=== PATIENT | female | born 1970 | race Asian ===

== ENCOUNTER 2020-03-08 11:08 | Emergency (ER) | payer BC, OTHER ==
[2020-03-08] MEDS ORDERED: Dexamethasone 4 MG/ML SDV IM ONE (11:55)
--- NOTE | 2020-03-08 12:31 | CR ---
PROCEDURE INFORMATION: Exam: XR Chest, 1 View Exam date and time: 03/08/2020 12:14 PM Age: 50 years old Clinical indication: Cough and shortness of breath; Additional info: Covid, increased SOB TECHNIQUE: Imaging protocol: XR of the chest Views: 1 view. COMPARISON: No relevant prior studies available. FINDINGS: Lungs: There is mild increase in interstitial markings within the lungs. This is nonspecific. No pneumonia or pulmonary edema is present. Pleural space: Unremarkable. No pleural effusion. No pneumothorax. Heart/Mediastinum: Unremarkable. No cardiomegaly. Bones/joints: Unremarkable. IMPRESSION: Chronic appearing interstitial change. No definite acute cardiopulmonary disease present.
[2020-03-08 12:35] LABS: PTT,PARTIAL THROMBOPLSTIN TIME 31.7 SEC (22.0-34.0)
[2020-03-08 12:37] LABS: ANION GAP 12.8 mEq/L (7-13); CHLORIDE,CL 100 mmol/L (98-107); SODIUM,NA 138 mmol/L (136-145)
--- NOTE | 2020-03-08 13:03 | EDM.PDOC ---
Scribed by Paulette Locke 03/08/20 1305 for Mary Ramsey MD ED HPI GENERAL MEDICAL PROBLEM - General Chief Complaint: Respiratory Problem Stated Complaint: COVID + CANT BREATH Time Seen by Provider: 03/08/20 11:30 Source of Information: Reports: Patient, RN, RN Notes Reviewed History Limitations: Reports: No Limitations - History of Present Illness INITIAL COMMENTS - FREE TEXT/NARRATIVE: Patient presents to ED stating COVID symptoms 8 days ago. Patient was on a course of Prednisone, which did not help much. Today she had chest tightness and pressure as well as increased shortness of breath especially with exertion. She last had fever 2 days ago. Onset: Gradual Duration: Getting Worse Location: Reports: Chest Quality: Reports: Ache Severity: Moderate Improves with: Reports: None Worsens with: Reports: None Associated Symptoms: Reports: No Other Symptoms Generalized Pain Score (Numeric/FACES): 5 - Related Data Allergies Allergy/AdvReac Type Severity Reaction Status Date / Time hydromorphone [From Dilaudid] Allergy Anxiety Verified 03/08/20 11:26 Home Meds: Home Meds Ibuprofen 400 mg PO Q6HR PRN 03/08/20 [History] metFORMIN [Glucophage XR] 500 mg PO ACBREAKFAST 03/08/20 [History] Past Medical History HEENT History: Reports: Impaired Vision Cardiovascular History: Reports: Other (See Below) Other Cardiovascular History: reports HX of congenital heart defect, has surgery 30 years Respiratory History: Reports: Asthma 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 ED EXAM, GENERAL - Physical Exam Exam: See Below Exam Limited By: No Limitations General Appearance: Alert, WD/WN, No Apparent Distress Eye Exam: Bilateral Eye: Normal Inspection Ears: Normal External Exam, Normal Canal, Hearing Grossly Normal, Normal TMs Nose: Normal Inspection, Normal Mucosa, No Blood Throat/Mouth: Normal Inspection, Normal Lips, Normal Teeth, Normal Gums, Normal Oropharynx, Normal Voice, No Airway Compromise Head: Atraumatic, Normocephalic Neck: Normal Inspection, Supple, Non-Tender, Full Range of Motion Respiratory/Chest: Other (decreased air movement. No wheezes or rales. ) Cardiovascular: Normal Peripheral Pulses, Regular Rate, Rhythm, No Edema, No Gallop, No JVD, No Murmur, No Rub GI/Abdominal: Normal Bowel Sounds, Soft, Non-Tender, No Organomegaly, No Distention, No Abnormal Bruit, No Mass (Female) Exam: Deferred Rectal (Female) Exam: Deferred Back Exam: Normal Inspection, Full Range of Motion, NT Extremities: Normal Inspection, Normal Range of Motion, Non-Tender, Normal Capillary Refill, No Pedal Edema Neurological: Alert, Oriented, CN II-XII Intact, Normal Cognition, Normal Gait, Normal Reflexes, No Motor/Sensory Deficits Psychiatric: Normal Affect, Normal Mood Skin Exam: Warm, Dry, Intact, Normal Color, No Rash Lymphatic: No Adenopathy Course - Vital Signs Last Recorded V/S: Last Vital Signs Temp 98.6 F 03/08/20 11:22 Pulse 97 03/08/20 11:22 Resp 20 03/08/20 11:22 BP 106/68 03/08/20 11:22 Pulse Ox 95 03/08/20 11:22 - Orders/Labs/Meds Labs: Laboratory Tests 03/08/20 03/08/20 03/08/20 Range/Units 12:10 12:10 12:10 WBC 6.9 (5.0-10.0) 10^3/uL RBC 5.56 H (4.2-5.4) 10^6/uL Hgb 12.2 (12.0-16.0) g/dL Hct 37.5 (37.0-47.0) % MCV 67.4 L (80-100) fL MCH 21.9 L (27.0-34.0) pg MCHC 32.5 L (33.0-35.0) g/dL Plt Count 235 (150-450) 10^3/uL Neut % (Auto) 72.3 (42.2-75.2) % Lymph % (Auto) 20.8 (20.5-50.1) % [place] % (Auto) 6.4 (2-8) % Eos % (Auto) 0.4 L (1.0-3.0) % Baso % (Auto) 0.1 (0.0-1.0) % PT 9.4 (9.0-12.0) SEC INR 1.0 (0.9-1.2) APTT 31.7 (22.0-34.0) SEC D-Dimer, Quantitative 334 (0-400) ng/mL Sodium 138 (136-145) mmol/L Potassium 3.8 (3.5-5.1) mmol/L Chloride 100 (98-107) mmol/L Carbon Dioxide 29 (21-32) mmol/L Anion Gap 12.8 (7-13) mEq/L BUN 12 (7-18) mg/dL Creatinine 0.76 (0.55-1.02) mg/dL Est Cr Clr Drug Dosing 65.34 mL/min Estimated GFR (MDRD) > 60 BUN/Creatinine Ratio 15.8 (No establ ref range) Glucose 93 (74-99) mg/dL Calcium 8.3 L (8.5-10.1) mg/dL Total Bilirubin 0.2 (0.2-1.0) mg/dL AST 23 (15-37) U/L ALT 28 (14-59) U/L Alkaline Phosphatase 70 (46-116) U/L Troponin I < 0.017 (0.000-0.056) ng/mL C-Reactive Protein 7.0 H (0.0-0.9) mg/dL Total Protein 7.0 (6.4-8.2) g/dL Albumin 3.0 L (3.4-5.0) g/dL Globulin 4.0 Albumin/Globulin Ratio 0.75 Meds: Medications Discontinued Medications Generic Name Dose Route Start Last Admin Trade Name Brigidoq PRN Reason Stop Dose Admin Dexamethasone 6 mg 03/08/20 11:55 03/08/20 12:38 Decadron IM 03/08/20 11:56 6 mg ONETIME ONE Administration Departure - Departure Time of Disposition: 13:01 Disposition: Home, Self-Care 01 Condition: Good Clinical Impression: COVID-19 - Discharge Information Instructions: COVID-19: How to Protect Yourself and Others - [facility] Forms: ED Department Discharge Additional Instructions: Dexamethasone daily for 9 more days starting tomorrow Quarantine to prevent the spread of COVID to others around you Symptomatic treatment for cough and body aches If symptoms worsen, call/return to the ER Follow up with primary care provider in 10-14 days Sepsis Event Note (ED) - Evaluation Sepsis Screening Result: No Definite Risk - Focused Exam Vital Signs: Vital Signs Temp Pulse Resp BP Pulse Ox 03/08/20 11:22 98.6 F 97 20 106/68 95 I have read and agree with the documentation that has been completed regarding this visit. By signing this record, I attest that the documentation was completed in my physical presence and is an accurate record of the encounter.
== END 2020-03-08 13:15 | disposition home or self-care (01) ==
LOC: DL.ED 11:08
DX: U07.1 COVID-19 (principal); J45.909 Unspecified asthma, uncomplicated; Z88.5 Allergy status to narcotic agent
CPT/HCPCS: 36415; 71045; 80053; 84484; 85025; 85379; 85610; 85730; 86140; 96372; 99283; 99285; J1100

== ENCOUNTER 2020-03-10 08:22 | Inpatient (IN) | payer BC ==
--- NOTE | 2020-03-10 08:29 | EDM.PDOC ---
ED HPI GENERAL MEDICAL PROBLEM - General Stated Complaint: COVID+, SHORTNESS OF BREATH Time Seen by Provider: 03/10/20 08:28 Source of Information: Reports: Patient History Limitations: Reports: No Limitations - History of Present Illness INITIAL COMMENTS - FREE TEXT/NARRATIVE: This 50 yo female patient reports to the ED due to increased shortness of breath. The patient was diagnosed with COVID eleven days ago. The patient has been seen in the [facility] once (started on Symbicort) and in the ED once (started on Dexamethasone). The patient reports her symptoms have gotten worse despite previous treatments. The patient reports she started "mouth breathing" 2 days ago and has not been able to speak more than 3-4 words without stopping to breath since yesterday. 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) Chest Pain Score (Numeric/FACES): 6 - Related Data Allergies Allergy/AdvReac Type Severity Reaction Status Date / Time hydromorphone [From Dilaudid] Allergy Anxiety Verified 03/10/20 08:51 Home Meds: Home Meds Ibuprofen 400 mg PO Q6HR PRN 03/08/20 [History] metFORMIN [Glucophage XR] 500 mg PO ACBREAKFAST 03/08/20 [History] Past Medical History HEENT History: Reports: Impaired Vision Cardiovascular History: Reports: Other (See Below) Other Cardiovascular History: reports HX of congenital heart defect, has surgery 30 years Respiratory History: Reports: Asthma 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 ED EXAM, GENERAL - Physical Exam Exam: See Below Exam Limited By: No Limitations General Appearance: Alert, WD/WN, Moderate Distress Eye Exam: Bilateral Eye: EOMI, Normal Inspection, PERRL Ears: Normal External Exam, Normal Canal, Hearing Grossly Normal, Normal TMs Nose: Normal Inspection, Normal Mucosa, No Blood Throat/Mouth: Normal Inspection, Normal Lips, Normal Teeth, Normal Gums, Normal Oropharynx, Normal Voice, No Airway Compromise Head: Atraumatic, Normocephalic Neck: Normal Inspection, Supple, Non-Tender, Full Range of Motion Respiratory/Chest: Decreased Breath Sounds Cardiovascular: Normal Peripheral Pulses, Regular Rate, Rhythm, No Edema, No Gallop, No JVD, No Murmur, No Rub GI/Abdominal: Normal Bowel Sounds, Soft, Non-Tender, No Organomegaly, No Distention, No Abnormal Bruit, No Mass (Female) Exam: Deferred Rectal (Female) Exam: Deferred Back Exam: Normal Inspection, Full Range of Motion, NT Extremities: Normal Inspection, Normal Range of Motion, Non-Tender, Normal Capillary Refill, No Pedal Edema Neurological: Alert, Oriented, CN II-XII Intact, Normal Cognition, Normal Gait, Normal Reflexes, No Motor/Sensory Deficits Psychiatric: Normal Affect, Normal Mood Skin Exam: Warm, Dry, Intact, Normal Color, No Rash Lymphatic: No Adenopathy Course - Vital Signs Last Recorded V/S: Last Vital Signs Temp 36.8 C 03/10/20 08:43 Pulse 82 03/10/20 08:43 Resp 32 H 03/10/20 08:43 BP 113/62 03/10/20 08:43 Pulse Ox 92 L 03/10/20 08:43 - Orders/Labs/Meds Orders: Active Orders 24 hr Category Date Time Status Admission Diagnosis [ADT] Urgent ADT 03/10/20 10:02 Ordered Admission Status [Patient Status] [ADT] Routine ADT 03/10/20 10:02 Ordered EKG Documentation Completion [RC] STAT Care 03/10/20 08:27 Active CULTURE BLOOD [BC] Stat Lab 03/10/20 08:58 Ordered CULTURE BLOOD [BC] Stat Lab 03/10/20 08:58 Ordered REFLEX LACTIC ACID YES OR NO [CHEM] Routine Lab 03/10/20 09:57 Received Blood Culture x2 Reflex Set [OM.PC] Stat Oth 03/10/20 08:58 Ordered Labs: Laboratory Tests 03/10/20 03/10/20 03/10/20 Range/Units 08:37 08:37 08:37 WBC 13.4 H (5.0-10.0) 10^3/uL RBC 4.97 (4.2-5.4) 10^6/uL Hgb 10.8 L (12.0-16.0) g/dL Hct 33.7 L (37.0-47.0) % MCV 67.8 L (80-100) fL MCH 21.7 L (27.0-34.0) pg MCHC 32.0 L (33.0-35.0) g/dL Plt Count 256 (150-450) 10^3/uL Neut % (Auto) 78.1 H (42.2-75.2) % Lymph % (Auto) 11.2 L (20.5-50.1) % [place] % (Auto) 10.6 H (2-8) % Eos % (Auto) 0.0 L (1.0-3.0) % Baso % (Auto) 0.1 (0.0-1.0) % PT (9.0-12.0) SEC INR (0.9-1.2) D-Dimer, Quantitative 235 (0-400) ng/mL Sodium 140 (136-145) mmol/L Potassium 3.4 L (3.5-5.1) mmol/L Chloride 102 (98-107) mmol/L Carbon Dioxide 27 (21-32) mmol/L Anion Gap 14.4 H (7-13) mEq/L BUN 12 (7-18) mg/dL Creatinine 0.76 (0.55-1.02) mg/dL Est Cr Clr Drug Dosing 65.34 mL/min Estimated GFR (MDRD) > 60 BUN/Creatinine Ratio 15.8 (No establ ref range) Glucose 113 H (74-99) mg/dL Lactic Acid (0.4-2.0) mmol/L Calcium 8.3 L (8.5-10.1) mg/dL Total Bilirubin 0.2 (0.2-1.0) mg/dL AST 46 H (15-37) U/L ALT 51 (14-59) U/L Alkaline Phosphatase 68 (46-116) U/L Troponin I < 0.017 (0.000-0.056) ng/mL C-Reactive Protein 3.0 H (0.0-0.9) mg/dL Total Protein 7.1 (6.4-8.2) g/dL Albumin 3.0 L (3.4-5.0) g/dL Globulin 4.1 Albumin/Globulin Ratio 0.73 03/10/20 03/10/20 Range/Units 08:37 09:20 WBC (5.0-10.0) 10^3/uL RBC (4.2-5.4) 10^6/uL Hgb (12.0-16.0) g/dL Hct (37.0-47.0) % MCV (80-100) fL MCH (27.0-34.0) pg MCHC (33.0-35.0) g/dL Plt Count (150-450) 10^3/uL Neut % (Auto) (42.2-75.2) % Lymph % (Auto) (20.5-50.1) % [place] % (Auto) (2-8) % Eos % (Auto) (1.0-3.0) % Baso % (Auto) (0.0-1.0) % PT 9.6 (9.0-12.0) SEC INR 1.0 (0.9-1.2) D-Dimer, Quantitative (0-400) ng/mL Sodium (136-145) mmol/L Potassium (3.5-5.1) mmol/L Chloride (98-107) mmol/L Carbon Dioxide (21-32) mmol/L Anion Gap (7-13) mEq/L BUN (7-18) mg/dL Creatinine (0.55-1.02) mg/dL Est Cr Clr Drug Dosing mL/min Estimated GFR (MDRD) BUN/Creatinine Ratio (No establ ref range) Glucose (74-99) mg/dL Lactic Acid 2.5 H* (0.4-2.0) mmol/L Calcium (8.5-10.1) mg/dL Total Bilirubin (0.2-1.0) mg/dL AST (15-37) U/L ALT (14-59) U/L Alkaline Phosphatase (46-116) U/L Troponin I (0.000-0.056) ng/mL C-Reactive Protein (0.0-0.9) mg/dL Total Protein (6.4-8.2) g/dL Albumin (3.4-5.0) g/dL Globulin Albumin/Globulin Ratio Departure - Departure Time of Disposition: 10:04 Disposition: Refer to Observation Condition: Poor Clinical Impression: COVID-19 Pneumonia Qualifiers: Pneumonia type: due to unspecified organism Laterality: bilateral Lung location: unspecified part of lung Qualified Code(s): J18.9 - Pneumonia, unspecified organism - Discharge Information *PRESCRIPTION DRUG MONITORING PROGRAM REVIEWED*: Not Applicable *COPY OF PRESCRIPTION DRUG MONITORING REPORT IN PATIENT NENO: Not Applicable Care Plan Goals: Discussed the patient's history, examination, lab and CT results with Dr. Erazo during the visit. Dr. Erazo accepted the patient for continued evaluation and management as an observation patient at [facility]. Sepsis Event Note (ED) - Focused Exam Vital Signs: Vital Signs Temp Pulse Resp BP Pulse Ox 03/10/20 08:43 36.8 C 82 32 H 113/62 92 L - My Orders Last 24 Hours: My Active Orders 03/10/20 08:27 EKG Documentation Completion [RC] STAT 03/10/20 08:58 CULTURE BLOOD [BC] Stat CULTURE BLOOD [BC] Stat Blood Culture x2 Reflex Set [OM.PC] Stat 03/10/20 09:57 REFLEX LACTIC ACID YES OR NO [CHEM] Routine 03/10/20 10:02 Admission Diagnosis [ADT] Urgent Admission Status [Patient Status] [ADT] Routine - Assessment/Plan Last 24 Hours: My Active Orders 03/10/20 08:27 EKG Documentation Completion [RC] STAT 03/10/20 08:58 CULTURE BLOOD [BC] Stat CULTURE BLOOD [BC] Stat Blood Culture x2 Reflex Set [OM.PC] Stat 03/10/20 09:57 REFLEX LACTIC ACID YES OR NO [CHEM] Routine 03/10/20 10:02 Admission Diagnosis [ADT] Urgent Admission Status [Patient Status] [ADT] Routine
[2020-03-10 09:05] LABS: ANION GAP 14.4 mEq/L (7-13); CHLORIDE,CL 102 mmol/L (98-107); SODIUM,NA 140 mmol/L (136-145)
--- NOTE | 2020-03-10 09:53 | CT ---
PROCEDURE INFORMATION: Exam: CT Chest Without Contrast Exam date and time: 03/10/2020 9:33 AM Age: 50 years old Clinical indication: Cough; Additional info: Short of breath (covid +) TECHNIQUE: Imaging protocol: Computed tomography of the chest without contrast. Radiation optimization: All CT scans at this facility use at least one of these dose optimization techniques: automated exposure control; mA and/or kV adjustment per patient size (includes targeted exams where dose is matched to clinical indication); or iterative reconstruction. COMPARISON: CR Chest 1V Frontal 03/08/2020 12:14 PM FINDINGS: Tracheobronchial tree: Normal. Lungs: Sharply defined geometric subsegments of subpleural and peripheral lung consolidation, greatest in the posterior portions of the left upper lobe including lingula, at a similar level the less prominently involved in right upper lobe and intermixed in the bilateral posterior lung bases where there is also atelectasis. Pleural space: Normal. Heart: There has been median sternotomy and aortotomy but no evidence of coronary bypass or cardiac valvuloplasty. Aorta: Normal. Lymph nodes: No enlarged axillary, mediastinal or hilar lymph nodes. Bones/joints: Normal. Soft tissues: Normal. IMPRESSION: Bilateral pneumonia. Commonly reported imaging features of COVID-19 pneumonia are present. Other processes such as influenza pneumonia and organizing pneumonia, as can be seen with drug toxicity and connective tissue disease, can cause a similar imaging pattern. (Reference: Grabiel) References: Grabiel Irvin et al., Radiological Society of [place] Expert Consensus Statement on Reporting Chest CT Findings Related to COVID-19. Endorsed by the Society of Thoracic Radiology, the [employer] [employer], and RSNA. Published July 17, 2019.
[2020-03-10] MEDS ORDERED: Ondansetron 4 MG Tab.DIS PO PRN (12:01)
[2020-03-10] MEDS ORDERED: Ondansetron 4 MG/2 ML SDV IVPUSH PRN (12:01)
--- NOTE | 2020-03-10 12:13 | PCM.PN ---
- General Info Date of Service: 03/10/20 - Patient Data Vitals - Most Recent: Last Vital Signs Temp 98.5 F 03/10/20 11:08 Pulse 62 03/10/20 11:08 Resp 28 H 03/10/20 11:08 BP 108/45 L 03/10/20 11:08 Pulse Ox 96 03/10/20 11:08 Weight - Most Recent: 140 lb Lab Results Last 24 Hours: Laboratory Results - last 24 hr 03/10/20 03/10/20 03/10/20 Range/Units 08:37 08:37 08:37 WBC 13.4 H (5.0-10.0) 10^3/uL RBC 4.97 (4.2-5.4) 10^6/uL Hgb 10.8 L (12.0-16.0) g/dL Hct 33.7 L (37.0-47.0) % MCV 67.8 L (80-100) fL MCH 21.7 L (27.0-34.0) pg MCHC 32.0 L (33.0-35.0) g/dL Plt Count 256 (150-450) 10^3/uL Neut % (Auto) 78.1 H (42.2-75.2) % Lymph % (Auto) 11.2 L (20.5-50.1) % [place] % (Auto) 10.6 H (2-8) % Eos % (Auto) 0.0 L (1.0-3.0) % Baso % (Auto) 0.1 (0.0-1.0) % PT (9.0-12.0) SEC INR (0.9-1.2) D-Dimer, Quantitative 235 (0-400) ng/mL Sodium 140 (136-145) mmol/L Potassium 3.4 L (3.5-5.1) mmol/L Chloride 102 (98-107) mmol/L Carbon Dioxide 27 (21-32) mmol/L Anion Gap 14.4 H (7-13) mEq/L BUN 12 (7-18) mg/dL Creatinine 0.76 (0.55-1.02) mg/dL Est Cr Clr Drug Dosing 65.34 mL/min Estimated GFR (MDRD) > 60 BUN/Creatinine Ratio 15.8 (No establ ref range) Glucose 113 H (74-99) mg/dL POC Glucose (70-105) mg/dl Lactic Acid (0.4-2.0) mmol/L Calcium 8.3 L (8.5-10.1) mg/dL Total Bilirubin 0.2 (0.2-1.0) mg/dL AST 46 H (15-37) U/L ALT 51 (14-59) U/L Alkaline Phosphatase 68 (46-116) U/L Troponin I < 0.017 (0.000-0.056) ng/mL C-Reactive Protein 3.0 H (0.0-0.9) mg/dL Total Protein 7.1 (6.4-8.2) g/dL Albumin 3.0 L (3.4-5.0) g/dL Globulin 4.1 Albumin/Globulin Ratio 0.73 03/10/20 03/10/20 03/10/20 Range/Units 08:37 09:20 11:07 WBC (5.0-10.0) 10^3/uL RBC (4.2-5.4) 10^6/uL Hgb (12.0-16.0) g/dL Hct (37.0-47.0) % MCV (80-100) fL MCH (27.0-34.0) pg MCHC (33.0-35.0) g/dL Plt Count (150-450) 10^3/uL Neut % (Auto) (42.2-75.2) % Lymph % (Auto) (20.5-50.1) % [place] % (Auto) (2-8) % Eos % (Auto) (1.0-3.0) % Baso % (Auto) (0.0-1.0) % PT 9.6 (9.0-12.0) SEC INR 1.0 (0.9-1.2) D-Dimer, Quantitative (0-400) ng/mL Sodium (136-145) mmol/L Potassium (3.5-5.1) mmol/L Chloride (98-107) mmol/L Carbon Dioxide (21-32) mmol/L Anion Gap (7-13) mEq/L BUN (7-18) mg/dL Creatinine (0.55-1.02) mg/dL Est Cr Clr Drug Dosing mL/min Estimated GFR (MDRD) BUN/Creatinine Ratio (No establ ref range) Glucose (74-99) mg/dL POC Glucose 133 H (70-105) mg/dl Lactic Acid 2.5 H* (0.4-2.0) mmol/L Calcium (8.5-10.1) mg/dL Total Bilirubin (0.2-1.0) mg/dL AST (15-37) U/L ALT (14-59) U/L Alkaline Phosphatase (46-116) U/L Troponin I (0.000-0.056) ng/mL C-Reactive Protein (0.0-0.9) mg/dL Total Protein (6.4-8.2) g/dL Albumin (3.4-5.0) g/dL Globulin Albumin/Globulin Ratio Vitor Results Last 24 Hours: Microbiology 03/10/20 09:23 Anaerobic Blood Culture - Final Blood - Arm, Right Med Orders - Current: Current Medications Acetaminophen (Tylenol) 650 mg PO Q4H PRN PRN Reason: Pain (Mild 1-3)/fever Dexamethasone (Decadron) 6 mg IVPUSH Q24H [facility] Enoxaparin Sodium (Lovenox) 40 mg SUBCUT DAILY [facility] Ferrous Sulfate (Ferrous Sulfate) 325 mg PO DAILY [facility] Azithromycin 500 mg/ Sodium (Chloride) 250 mls @ 250 mls/hr IV Q24H [facility] Ceftriaxone Sodium 1 gm/ (Sodium Chloride) 50 mls @ 100 mls/hr IV Q24H [facility] Sodium Chloride (Normal Saline) 1,000 mls @ 100 mls/hr IV ASDIRECTED [facility] Stop: 03/11/20 12:00 Sodium Chloride (Normal Saline) 1,000 mls @ 500 mls/hr IV ASDIRECTED [facility] Non-Formulary Medication (Budesonide/Formoterol) 1 puff INH DAILY [facility] Ondansetron HCl (Zofran Odt) 4 mg PO Q4H PRN PRN Reason: nausea, able to take PO Ondansetron HCl (Zofran) 4 mg IVPUSH Q4H PRN PRN Reason: Nausea/Vomiting Potassium Chloride (Klor-Con 10) 40 meq PO BIDMEALS [facility] Stop: 03/11/20 10:00 Sepsis Event Note - Evaluation Sepsis Screening Result: No Definite Risk - Focused Exam Vital Signs: Vital Signs Temp Pulse Resp BP BP Pulse Ox 03/10/20 11:08 98.5 F 62 28 H 108/45 L 116/71 96 03/10/20 08:43 98.3 F 82 32 H 113/62 92 L - My Orders Last 24 Hours: My Active Orders 03/10/20 Lunch Regular Diet [DIET] 03/10/20 12:01 Oxygen Therapy [RC] PRN VTE/DVT Education [RC] PER UNIT ROUTINE Vital Signs [RC] Q4H Acetaminophen [TylenoL] 650 mg PO Q4H PRN Ondansetron [Zofran ODT] 4 mg PO Q4H PRN Ondansetron [Zofran] 4 mg IVPUSH Q4H PRN Resuscitation Status Routine 03/10/20 12:09 Nurse Communication: Isolation [RC] ASDIRECTED Isolation [COMM] Stat 03/10/20 12:11 Potassium Chloride [Klor-Con 10] 40 meq PO BIDMEALS 03/10/20 12:15 Azithromycin [Zithromax] 500 mg Sodium Chloride 0.9% [Normal Saline (AdvBag)] 250 ml IV Q24H Budesonide/Formoterol 1 puff INH DAILY Enoxaparin [Lovenox] 40 mg SUBCUT DAILY Sodium Chloride 0.9% @ 100 MLS/HR(1,000ml) Sodium Chloride 0.9% [Normal Saline] 1,000 ml IV ASDIRECTED Sodium Chloride 0.9% [Normal Saline] 1,000 ml IV ASDIRECTED cefTRIAXone [Rocephin] 1 gm Sodium Chloride 0.9% [Normal Saline] 50 ml IV Q24H dexAMETHasone [Decadron] 6 mg IVPUSH Q24H 03/11/20 05:11 CBC W/O DIFF,HEMOGRAM [HEME] AM CMP [COMPREHENSIVE METABOLIC PN,CMP] [CHEM] AM D-DIMER QUANTITATIVE [COAG] AM INR,PT,PROTHROMBIN TIME [COAG] AM LACTATE DEHYDROGENASE,LDH [CHEM] AM LACTATE SEPSIS W/ REFLEX [CHEM] AM PROCALCITONIN [REF] AM 03/11/20 09:00 Ferrous Sulfate 325 mg PO DAILY
[2020-03-10] MEDS ORDERED: Sodium Chloride 0.9% 1,000 ML IV SCH (12:15)
[2020-03-10] MEDS: Sodium Chloride 0.9% 1,000 ML IV SCH (12:27)
[2020-03-10] MEDS: Azithromycin 500 MG in Sodium Chloride 0.9% 250 ML IV SCH (12:31)
[2020-03-10] MEDS ORDERED: cefTRIAXone 1 GM Vial ONE (12:39)
[2020-03-10] MEDS: Potassium Chloride 10 MEQ Tab.ER PO SCH ×2 (12:52→17:15)
[2020-03-10] MEDS: Enoxaparin 40 MG/0.4 ML Syringe SUBCUT SCH (12:56)
[2020-03-10] MEDS: cefTRIAXone 1 GM in Sodium Chloride 0.9% 50 ML IV SCH (12:59)
[2020-03-10] MEDS: Dexamethasone 4 MG/ML SDV IVPUSH SCH (13:01)
--- NOTE | 2020-03-10 16:10 | PCM.HP ---
H&P History of Present Illness - General Date of Service: 03/10/20 Admit Problem/Dx: Admission Diagnosis/Problem Admission Diagnosis/Problem Pneumonia Source of Information: Patient History Limitations: Reports: No Limitations - History of Present Illness Initial Comments - Free Text/Narative: Patient is a 50-year-old female with a medical history of asthma, PCOS on Metformin who was diagnosed with COVID-19 11 days ago and presents today with complaints of worsening shortness of breath. Patient reports that she was exposed at work to the coronavirus. She contracted the virus and was diagnosed with a positive test 11 days ago. She has been having cough and shortness of breath, fever and body aches. The fever and body aches have resolved since she has been on isolation. Cough is improved, however she has noticed worsening shortness of breath in the past couple days. Patient was seen in the ED. She was not hypoxic but tachypneic up to 32. Labs showed elevated WBC of 13.4, hemoglobin of 10.8 and lactic acid of 2.5. Chest CT showed bilateral pneumonia. Chest Pain Score (Numeric/FACES): 6 - Related Data Allergies/Adverse Reactions: Allergies Allergy/AdvReac Type Severity Reaction Status Date / Time hydromorphone [From Dilaudid] Allergy Anxiety Verified 03/10/20 11:01 Home Medications: Home Meds Ibuprofen 400 mg PO Q6HR PRN 03/08/20 [History] metFORMIN [Glucophage XR] 500 mg PO ACBREAKFAST 03/08/20 [History] Budesonide/Formoterol [Symbicort 160-4.5 MCG] 1 puff INH DAILY 03/10/20 [History] Ferrous Sulfate [Iron] 325 mg PO DAILY 03/10/20 [History] dexAMETHasone [Dexamethasone] 6 mg PO DAILY 03/10/20 [History] Past Medical History HEENT History: Reports: Impaired Vision Other HEENT History: wears glasses Cardiovascular History: Reports: Other (See Below) Other Cardiovascular History: reports HX of congenital heart defect, had surgery 30 years ago Respiratory History: Reports: Asthma Gastrointestinal History: Reports: None Genitourinary History: Reports: None [employer]IST History: Reports: Other (See Below) Other OB/BYN History: PCOS, history of miscarriage Musculoskeletal History: Reports: None Neurological History: Reports: None Psychiatric History: Reports: None Hematologic History: Reports: None Immunologic History: Reports: None Oncologic (Cancer) History: Reports: None Dermatologic History: Reports: None - Infectious Disease History Infectious Disease History: Reports: Chicken Pox, Measles, Mumps - Past Surgical History Head Surgeries/Procedures: Reports: None Social & Family History - Family History Family Medical History: Unobtainable - Tobacco Use Tobacco Use Status *Q: Never Tobacco User Second Hand Smoke Exposure: No - Caffeine Use Caffeine Use: Reports: Coffee, Soda Other Caffeine Use: coffee daily. - Recreational Drug Use Recreational Drug Use: No H&P Review of Systems - Review of Systems: Review Of Systems: See Below General: Reports: Malaise HEENT: Reports: No Symptoms Pulmonary: Reports: Shortness of Breath, Cough Cardiovascular: Reports: No Symptoms Gastrointestinal: Reports: No Symptoms Genitourinary: Reports: No Symptoms Musculoskeletal: Reports: No Symptoms Skin: Reports: No Symptoms Psychiatric: Reports: No Symptoms Neurological: Reports: No Symptoms Hematologic/Lymphatic: Reports: No Symptoms Immunologic: Reports: No Symptoms Exam - Exam Exam: See Below - Vital Signs Vital Signs: Last Vital Signs Temp 98.4 F 03/10/20 15:59 Pulse 65 03/10/20 15:59 Resp 18 03/10/20 15:59 BP 99/55 L 03/10/20 15:59 Pulse Ox 100 03/10/20 15:59 Weight: 140 lb - Exam General: Alert, Oriented, 4 HEENT: PERRLA, Hearing Intact, Mucosa Moist & [place], Nares Patent, Normal Nasal Septum, Posterior Pharynx Clear, Conjunctiva Clear, EOMI, EACs Clear, TMs Clear Neck: Supple, Trachea Midline, 2 Lungs: Clear to Auscultation, Normal Respiratory Effort Cardiovascular: Regular Rate, Regular Rhythm GI/Abdominal Exam: Normal Bowel Sounds, Soft, Non-Tender, No Organomegaly, No Distention, No Abnormal Bruit, No Mass, Pelvis Stable Back Exam: Normal Inspection, Full Range of Motion, NT Extremities: Normal Inspection, Normal Range of Motion, Non-Tender, No Pedal Edema, Normal Capillary Refill Skin: Warm, Dry, Intact Neurological: Cranial Nerves Intact, Reflexes Equal Bilateral Neuro Extensive - Mental Status: Alert, Oriented x3, Normal Mood/Affect, Normal Cognition Neuro Extensive - Motor, Sensory, Reflexes: CN II-XII Intact, Normal Gait, Normal Reflexes Psychiatric: Alert, Normal Affect, Normal Mood - Patient Data Lab Results Last 24 hrs: Laboratory Results - last 24 hr 03/10/20 03/10/20 03/10/20 Range/Units 08:37 08:37 08:37 WBC 13.4 H (5.0-10.0) 10^3/uL RBC 4.97 (4.2-5.4) 10^6/uL Hgb 10.8 L (12.0-16.0) g/dL Hct 33.7 L (37.0-47.0) % MCV 67.8 L (80-100) fL MCH 21.7 L (27.0-34.0) pg MCHC 32.0 L (33.0-35.0) g/dL Plt Count 256 (150-450) 10^3/uL Neut % (Auto) 78.1 H (42.2-75.2) % Lymph % (Auto) 11.2 L (20.5-50.1) % [place] % (Auto) 10.6 H (2-8) % Eos % (Auto) 0.0 L (1.0-3.0) % Baso % (Auto) 0.1 (0.0-1.0) % PT (9.0-12.0) SEC INR (0.9-1.2) D-Dimer, Quantitative 235 (0-400) ng/mL Sodium 140 (136-145) mmol/L Potassium 3.4 L (3.5-5.1) mmol/L Chloride 102 (98-107) mmol/L Carbon Dioxide 27 (21-32) mmol/L Anion Gap 14.4 H (7-13) mEq/L BUN 12 (7-18) mg/dL Creatinine 0.76 (0.55-1.02) mg/dL Est Cr Clr Drug Dosing 65.34 mL/min Estimated GFR (MDRD) > 60 BUN/Creatinine Ratio 15.8 (No establ ref range) Glucose 113 H (74-99) mg/dL POC Glucose (70-105) mg/dl Lactic Acid (0.4-2.0) mmol/L Calcium 8.3 L (8.5-10.1) mg/dL Total Bilirubin 0.2 (0.2-1.0) mg/dL AST 46 H (15-37) U/L ALT 51 (14-59) U/L Alkaline Phosphatase 68 (46-116) U/L Troponin I < 0.017 (0.000-0.056) ng/mL C-Reactive Protein 3.0 H (0.0-0.9) mg/dL Total Protein 7.1 (6.4-8.2) g/dL Albumin 3.0 L (3.4-5.0) g/dL Globulin 4.1 Albumin/Globulin Ratio 0.73 03/10/20 03/10/20 03/10/20 Range/Units 08:37 09:20 11:07 WBC (5.0-10.0) 10^3/uL RBC (4.2-5.4) 10^6/uL Hgb (12.0-16.0) g/dL Hct (37.0-47.0) % MCV (80-100) fL MCH (27.0-34.0) pg MCHC (33.0-35.0) g/dL Plt Count (150-450) 10^3/uL Neut % (Auto) (42.2-75.2) % Lymph % (Auto) (20.5-50.1) % [place] % (Auto) (2-8) % Eos % (Auto) (1.0-3.0) % Baso % (Auto) (0.0-1.0) % PT 9.6 (9.0-12.0) SEC INR 1.0 (0.9-1.2) D-Dimer, Quantitative (0-400) ng/mL Sodium (136-145) mmol/L Potassium (3.5-5.1) mmol/L Chloride (98-107) mmol/L Carbon Dioxide (21-32) mmol/L Anion Gap (7-13) mEq/L BUN (7-18) mg/dL Creatinine (0.55-1.02) mg/dL Est Cr Clr Drug Dosing mL/min Estimated GFR (MDRD) BUN/Creatinine Ratio (No establ ref range) Glucose (74-99) mg/dL POC Glucose 133 H (70-105) mg/dl Lactic Acid 2.5 H* (0.4-2.0) mmol/L Calcium (8.5-10.1) mg/dL Total Bilirubin (0.2-1.0) mg/dL AST (15-37) U/L ALT (14-59) U/L Alkaline Phosphatase (46-116) U/L Troponin I (0.000-0.056) ng/mL C-Reactive Protein (0.0-0.9) mg/dL Total Protein (6.4-8.2) g/dL Albumin (3.4-5.0) g/dL Globulin Albumin/Globulin Ratio 11/17/20 Range/Units 11:50 WBC (5.0-10.0) 10^3/uL RBC (4.2-5.4) 10^6/uL Hgb (12.0-16.0) g/dL Hct (37.0-47.0) % MCV (80-100) fL MCH (27.0-34.0) pg MCHC (33.0-35.0) g/dL Plt Count (150-450) 10^3/uL Neut % (Auto) (42.2-75.2) % Lymph % (Auto) (20.5-50.1) % [place] % (Auto) (2-8) % Eos % (Auto) (1.0-3.0) % Baso % (Auto) (0.0-1.0) % PT (9.0-12.0) SEC INR (0.9-1.2) D-Dimer, Quantitative (0-400) ng/mL Sodium (136-145) mmol/L Potassium (3.5-5.1) mmol/L Chloride (98-107) mmol/L Carbon Dioxide (21-32) mmol/L Anion Gap (7-13) mEq/L BUN (7-18) mg/dL Creatinine (0.55-1.02) mg/dL Est Cr Clr Drug Dosing mL/min Estimated GFR (MDRD) BUN/Creatinine Ratio (No establ ref range) Glucose (74-99) mg/dL POC Glucose (70-105) mg/dl Lactic Acid 2.5 H* (0.4-2.0) mmol/L Calcium (8.5-10.1) mg/dL Total Bilirubin (0.2-1.0) mg/dL AST (15-37) U/L ALT (14-59) U/L Alkaline Phosphatase (46-116) U/L Troponin I (0.000-0.056) ng/mL C-Reactive Protein (0.0-0.9) mg/dL Total Protein (6.4-8.2) g/dL Albumin (3.4-5.0) g/dL Globulin Albumin/Globulin Ratio Result Diagrams: 03/10/20 08:37 03/10/20 08:37 Vitor Results Last 24 hrs: Microbiology 03/10/20 09:23 Anaerobic Blood Culture - Final Blood - Arm, Right Problem List Initiated/Reviewed/Updated: Yes Orders Last 24hrs: Active Orders 24 hr Category Date Time Status Admission Diagnosis [ADT] Urgent ADT 03/10/20 10:02 Ordered Admission Status [Patient Status] [ADT] Routine ADT 03/10/20 10:02 Active Oxygen Therapy [RC] PRN Care 03/10/20 12:01 Active Peripheral IV Care [RC] Care 03/10/20 13:28 Active VTE/DVT Education [RC] PER UNIT ROUTINE Care 03/10/20 12:01 Active Vital Signs [RC] Q4H Care 03/10/20 12:01 Active Regular Diet [DIET] Diet 03/10/20 Lunch Active CBC W/O DIFF,HEMOGRAM [HEME] AM Lab 03/11/20 05:11 Ordered CMP [COMPREHENSIVE METABOLIC PN,CMP] [CHEM] AM Lab 03/11/20 05:11 Ordered CULTURE BLOOD [BC] Stat Lab 03/10/20 09:20 Received CULTURE BLOOD [BC] Stat Lab 03/10/20 09:23 Results D-DIMER QUANTITATIVE [COAG] AM Lab 03/11/20 05:11 Ordered INR,PT,PROTHROMBIN TIME [COAG] AM Lab 03/11/20 05:11 Ordered LACTATE DEHYDROGENASE,LDH [CHEM] AM Lab 03/11/20 05:11 Ordered LACTATE SEPSIS W/ REFLEX [CHEM] AM Lab 03/11/20 05:11 Ordered PROCALCITONIN [REF] AM Lab 03/11/20 05:11 Ordered Acetaminophen [TylenoL] Med 03/10/20 12:01 Active 650 mg PO Q4H PRN Azithromycin [Zithromax] 500 mg Med 03/10/20 12:00 Active Sodium Chloride 0.9% [Normal Saline (AdvBag)] 250 ml IV Q24H Budesonide/Formoterol Med 03/10/20 12:15 Pending 1 puff INH DAILY Enoxaparin [Lovenox] Med 03/10/20 12:15 Active 40 mg SUBCUT DAILY Ferrous Sulfate Med 03/11/20 09:00 Active 325 mg PO DAILY Ondansetron [Zofran ODT] Med 03/10/20 12:01 Active 4 mg PO Q4H PRN Ondansetron [Zofran] Med 03/10/20 12:01 Active 4 mg IVPUSH Q4H PRN Potassium Chloride [Klor-Con 10] Med 03/10/20 12:11 Active 40 meq PO BIDMEALS Sodium Chloride 0.9% [Normal Saline] 1,000 ml Med 03/10/20 12:15 Active IV ASDIRECTED Sodium Chloride 0.9% [Saline Flush] Med 03/10/20 13:27 Active 10 ml FLUSH ASDIRECTED PRN cefTRIAXone [Rocephin] 1 gm Med 03/10/20 13:00 Active Sodium Chloride 0.9% [Normal Saline] 50 ml IV Q24H dexAMETHasone [Decadron] Med 03/10/20 12:00 Active 6 mg IVPUSH Q24H Blood Culture x2 Reflex Set [OM.PC] Stat Oth 03/10/20 08:58 Ordered Isolation [COMM] Stat Oth 03/10/20 12:09 Active Peripheral IV Insertion Adult [OM.PC] Routine Oth 03/10/20 13:27 Ordered Resuscitation Status Routine Resus Stat 03/10/20 12:01 Ordered Medication Orders Acetaminophen (Tylenol) 650 mg PO Q4H PRN PRN Reason: Pain (Mild 1-3)/fever Dexamethasone (Decadron) 6 mg IVPUSH Q24H [facility] Last Admin: 03/10/20 13:01 Dose: 6 mg Documented by: CHAVA Enoxaparin Sodium (Lovenox) 40 mg SUBCUT DAILY [facility] Last Admin: 03/10/20 12:56 Dose: 40 mg Documented by: CHAVA Ferrous Sulfate (Ferrous Sulfate) 325 mg PO DAILY [facility] Azithromycin 500 mg/ Sodium (Chloride) 250 mls @ 250 mls/hr IV Q24H [facility] Last Admin: 03/10/20 12:31 Dose: 250 mls/hr Documented by: CHAVA Ceftriaxone Sodium 1 gm/ (Sodium Chloride) 50 mls @ 100 mls/hr IV Q24H [facility] Last Admin: 03/10/20 12:59 Dose: 100 mls/hr Documented by: CHAVA Sodium Chloride (Normal Saline) 1,000 mls @ 100 mls/hr IV ASDIRECTED [facility] Stop: 03/11/20 12:00 Last Admin: 03/10/20 12:27 Dose: 100 mls/hr Documented by: CHAVA Non-Formulary Medication (Budesonide/Formoterol) 1 puff INH DAILY [facility] Ondansetron HCl (Zofran Odt) 4 mg PO Q4H PRN PRN Reason: nausea, able to take PO Ondansetron HCl (Zofran) 4 mg IVPUSH Q4H PRN PRN Reason: Nausea/Vomiting Potassium Chloride (Klor-Con 10) 40 meq PO BIDMEALS [facility] Stop: 03/11/20 10:00 Last Admin: 03/10/20 12:52 Dose: 40 meq Documented by: CHAVA Sodium Chloride (Saline Flush) 10 ml FLUSH ASDIRECTED PRN PRN Reason: Keep Vein Open Assessment/Plan Comment:: Acute respiratory distress due to COVID-19 pneumonia Probable bacterial pneumonia Start ceftriaxone and azithromycin Resume Decadron daily Patient is too far out to benefit from remdesivir and I do not think convalescent plasma will be helpful at this point either. Continue respiratory support as needed with oxygen by nasal cannula Daily Covid labs and a.m. procalcitonin Lactic acidosis Trend with IV fluids History of asthma Resume home nebs History of PCOS Hold Metformin due to lactic acidosis DVT prophylaxis: Lovenox CODE STATUS: Full code
[2020-03-10] MEDS: guaiFENesin/Dextromethorphan 100-10 MG/5 ML Soln 5 ML Cup PO PRN (20:09)
[2020-03-10] MEDS: Melatonin 3 MG Tab PO PRN (20:09)
[2020-03-11] MEDS: Sodium Chloride 0.9% 1,000 ML IV SCH (03:42)
[2020-03-11] MEDS ORDERED: Non-Formulary Medication 1 Each (Metformin [Glucophage Xr] 500 MG) PO SCH (06:00)
[2020-03-11 07:31] LABS: ANION GAP 14.7 mEq/L (7-13); CHLORIDE,CL 104 mmol/L (98-107); SODIUM,NA 140 mmol/L (136-145)
[2020-03-11] MEDS ORDERED: metFORMIN 500 MG Tab PO SCH (08:00)
[2020-03-11] MEDS: Potassium Chloride 10 MEQ Tab.ER PO SCH (08:19)
[2020-03-11] MEDS: Enoxaparin 40 MG/0.4 ML Syringe SUBCUT SCH (08:20)
[2020-03-11] MEDS: Ferrous Sulfate 325 MG Tab PO SCH (08:20)
[2020-03-11] MEDS: Acetaminophen 325 MG Tab PO PRN ×2 (09:08→21:06)
--- NOTE | 2020-03-11 11:07 | PCM.PN ---
- General Info Date of Service: 03/11/20 Admission Dx/Problem (Free Text): Admission Diagnosis/Problem Admission Diagnosis/Problem Pneumonia Subjective Update: Patient is a 50-year-old female with a medical history of asthma, PCOS on Metformin who was diagnosed with COVID-19 11 days ago and presents today with complaints of worsening shortness of breath. He was admitted for COVID-[address] showed bilateral pneumonia. Today he is doing okay. He is on 6 L of supplemental oxygen via nasal cannula. He denies any complaints. Denies chest pain, shortness of breath, fever, chills. Has intermittent cough. Labs reviewed. Functional Status: Reports: Pain Controlled - Review of Systems General: Reports: No Symptoms HEENT: Reports: No Symptoms Pulmonary: Reports: No Symptoms Cardiovascular: Reports: No Symptoms Gastrointestinal: Reports: No Symptoms Genitourinary: Reports: No Symptoms Musculoskeletal: Reports: No Symptoms Skin: Reports: No Symptoms Neurological: Reports: No Symptoms Psychiatric: Reports: No Symptoms - Patient Data Vitals - Most Recent: Last Vital Signs Temp 98.8 F 03/11/20 07:00 Pulse 68 03/11/20 07:00 Resp 22 H 03/11/20 07:00 BP 99/51 L 03/11/20 07:00 Pulse Ox 95 03/11/20 07:00 Weight - Most Recent: 140 lb I&O - Last 24 Hours: Intake & Output 03/10/20 03/11/20 03/11/20 22:59 06:59 14:59 Intake Total 420 1200 Balance 420 1200 Lab Results Last 24 Hours: Laboratory Results - last 24 hr 03/10/20 03/10/20 03/11/20 Range/Units 11:07 11:50 06:35 WBC 14.2 H (5.0-10.0) 10^3/uL RBC 4.50 (4.2-5.4) 10^6/uL Hgb 9.6 L (12.0-16.0) g/dL Hct 30.7 L (37.0-47.0) % MCV 68.2 L (80-100) fL MCH 21.3 L (27.0-34.0) pg MCHC 31.3 L (33.0-35.0) g/dL Plt Count 233 (150-450) 10^3/uL PT (9.0-12.0) SEC INR (0.9-1.2) D-Dimer, Quantitative (0-400) ng/mL Sodium (136-145) mmol/L Potassium (3.5-5.1) mmol/L Chloride (98-107) mmol/L Carbon Dioxide (21-32) mmol/L Anion Gap (7-13) mEq/L BUN (7-18) mg/dL Creatinine (0.55-1.02) mg/dL Est Cr Clr Drug Dosing mL/min Estimated GFR (MDRD) BUN/Creatinine Ratio (No establ ref range) Glucose (74-99) mg/dL POC Glucose 133 H (70-105) mg/dl Lactic Acid 2.5 H* (0.4-2.0) mmol/L Calcium (8.5-10.1) mg/dL Total Bilirubin (0.2-1.0) mg/dL AST (15-37) U/L ALT (14-59) U/L Alkaline Phosphatase (46-116) U/L Lactate Dehydrogenase (81-234) U/L Total Protein (6.4-8.2) g/dL Albumin (3.4-5.0) g/dL Globulin Albumin/Globulin Ratio 03/11/20 03/11/20 03/11/20 Range/Units 06:35 06:35 06:35 WBC (5.0-10.0) 10^3/uL RBC (4.2-5.4) 10^6/uL Hgb (12.0-16.0) g/dL Hct (37.0-47.0) % MCV (80-100) fL MCH (27.0-34.0) pg MCHC (33.0-35.0) g/dL Plt Count (150-450) 10^3/uL PT 9.8 (9.0-12.0) SEC INR 1.0 (0.9-1.2) D-Dimer, Quantitative 155 (0-400) ng/mL Sodium 140 (136-145) mmol/L Potassium 3.7 (3.5-5.1) mmol/L Chloride 104 (98-107) mmol/L Carbon Dioxide 25 (21-32) mmol/L Anion Gap 14.7 H (7-13) mEq/L BUN 12 (7-18) mg/dL Creatinine 0.55 (0.55-1.02) mg/dL Est Cr Clr Drug Dosing 90.29 mL/min Estimated GFR (MDRD) > 60 BUN/Creatinine Ratio 21.8 (No establ ref range) Glucose 93 (74-99) mg/dL POC Glucose (70-105) mg/dl Lactic Acid 1.2 (0.4-2.0) mmol/L Calcium 7.9 L (8.5-10.1) mg/dL Total Bilirubin 0.2 (0.2-1.0) mg/dL AST 49 H (15-37) U/L ALT 71 H (14-59) U/L Alkaline Phosphatase 75 (46-116) U/L Lactate Dehydrogenase 258 H (81-234) U/L Total Protein 6.2 L (6.4-8.2) g/dL Albumin 2.5 L (3.4-5.0) g/dL Globulin 3.7 Albumin/Globulin Ratio 0.68 11/18/20 Range/Units 08:16 WBC (5.0-10.0) 10^3/uL RBC (4.2-5.4) 10^6/uL Hgb (12.0-16.0) g/dL Hct (37.0-47.0) % MCV (80-100) fL MCH (27.0-34.0) pg MCHC (33.0-35.0) g/dL Plt Count (150-450) 10^3/uL PT (9.0-12.0) SEC INR (0.9-1.2) D-Dimer, Quantitative (0-400) ng/mL Sodium (136-145) mmol/L Potassium (3.5-5.1) mmol/L Chloride (98-107) mmol/L Carbon Dioxide (21-32) mmol/L Anion Gap (7-13) mEq/L BUN (7-18) mg/dL Creatinine (0.55-1.02) mg/dL Est Cr Clr Drug Dosing mL/min Estimated GFR (MDRD) BUN/Creatinine Ratio (No establ ref range) Glucose (74-99) mg/dL POC Glucose 108 H (70-105) mg/dl Lactic Acid (0.4-2.0) mmol/L Calcium (8.5-10.1) mg/dL Total Bilirubin (0.2-1.0) mg/dL AST (15-37) U/L ALT (14-59) U/L Alkaline Phosphatase (46-116) U/L Lactate Dehydrogenase (81-234) U/L Total Protein (6.4-8.2) g/dL Albumin (3.4-5.0) g/dL Globulin Albumin/Globulin Ratio Vitor Results Last 24 Hours: Microbiology 03/10/20 09:23 Aerobic Blood Culture - Preliminary Blood - Arm, Right NO GROWTH AFTER 1 DAY Anaerobic Blood Culture - Final 03/10/20 09:20 Aerobic Blood Culture - Preliminary Blood - Arm, Left NO GROWTH AFTER 1 DAY Anaerobic Blood Culture - Preliminary NO GROWTH AFTER 1 DAY Med Orders - Current: Current Medications Acetaminophen (Tylenol) 650 mg PO Q4H PRN PRN Reason: Pain (Mild 1-3)/fever Last Admin: 03/11/20 09:08 Dose: 650 mg Documented by: Dexamethasone (Decadron) 6 mg IVPUSH Q24H [facility] Last Admin: 03/10/20 13:01 Dose: 6 mg Documented by: Enoxaparin Sodium (Lovenox) 40 mg SUBCUT DAILY [facility] Last Admin: 03/11/20 08:20 Dose: 40 mg Documented by: Ferrous Sulfate (Ferrous Sulfate) 325 mg PO DAILY [facility] Last Admin: 03/11/20 08:20 Dose: 325 mg Documented by: Guaifenesin/Phenylephrine HCl (Robitussin Dm) 10 ml PO Q6H PRN PRN Reason: Cough Last Admin: 03/10/20 20:09 Dose: 10 ml Documented by: Azithromycin 500 mg/ Sodium (Chloride) 250 mls @ 250 mls/hr IV Q24H [facility] Last Admin: 03/10/20 12:31 Dose: 250 mls/hr Documented by: Ceftriaxone Sodium 1 gm/ (Sodium Chloride) 50 mls @ 100 mls/hr IV Q24H [facility] Last Admin: 03/10/20 12:59 Dose: 100 mls/hr Documented by: Sodium Chloride (Normal Saline) 1,000 mls @ 100 mls/hr IV ASDIRECTED [facility] Stop: 03/11/20 12:00 Last Admin: 03/11/20 03:42 Dose: 100 mls/hr Documented by: Melatonin (Melatonin) 6 mg PO BEDTIME PRN PRN Reason: Insomnia Last Admin: 03/10/20 20:09 Dose: 6 mg Documented by: Metformin HCl (Glucophage) 500 mg PO BIDMEALS [facility] Last Admin: 03/11/20 08:19 Dose: 500 mg Documented by: (Budesonide/Formoterol 1 Puff) *Own Med 1 puff INH DAILY [facility] Last Admin: 03/11/20 09:07 Dose: 1 puff Documented by: Ondansetron HCl (Zofran Odt) 4 mg PO Q4H PRN PRN Reason: nausea, able to take PO Ondansetron HCl (Zofran) 4 mg IVPUSH Q4H PRN PRN Reason: Nausea/Vomiting Sodium Chloride (Saline Flush) 10 ml FLUSH ASDIRECTED PRN PRN Reason: Keep Vein Open Discontinued Medications Ceftriaxone Sodium (Rocephin) Confirm Administered Dose 1 gm .ROUTE .STK-MED ONE Stop: 03/10/20 12:40 Last Admin: 03/10/20 12:57 Dose: Not Given Documented by: Sodium Chloride (Normal Saline) 1,000 mls @ 500 mls/hr IV ASDIRECTED [facility] Stop: 03/10/20 14:14 Last Admin: 03/10/20 12:53 Dose: 500 mls/hr Documented by: Non-Formulary Medication (Metformin [Glucophage Xr]) 500 mg PO ACBREAKFAST [facility] Potassium Chloride (Klor-Con 10) 40 meq PO BIDMEALS [facility] Stop: 03/11/20 10:00 Last Admin: 03/11/20 08:19 Dose: 40 meq Documented by: - Exam Quality Assessment: Supplemental Oxygen General: Alert, Oriented HEENT: Pupils Equal, Pupils Reactive, EOMI, Mucous Membr. Moist/[place] Neck: Supple Lungs: Clear to Auscultation, Normal Respiratory Effort Cardiovascular: Regular Rate, Regular Rhythm GI/Abdominal Exam: Normal Bowel Sounds, Soft, Non-Tender, No Organomegaly, No Distention, No Abnormal Bruit, No Mass, Pelvis Stable (Female) Exam: Normal External Exam, Normal Speculum Exam, Normal Bimanual Exam Back Exam: Normal Inspection, Full Range of Motion Extremities: Normal Inspection, Normal Range of Motion, Non-Tender, No Pedal Edema, Normal Capillary Refill Skin: Warm, Dry, Intact Wound/Incisions: Healing Well Neurological: No New Focal Deficit Psy/Mental Status: Alert, Normal Affect, Normal Mood Sepsis Event Note - Evaluation Sepsis Screening Result: No Definite Risk - Focused Exam Vital Signs: Vital Signs Temp Pulse Resp BP Pulse Ox 03/11/20 07:00 98.8 F 68 22 H 99/51 L 95 03/11/20 03:54 99.1 F 69 18 105/60 97 - Problem List & Annotations (1) Sepsis due to undetermined organism SNOMED Code(s): 55377820 Code(s): A41.9 - SEPSIS, UNSPECIFIED ORGANISM Status: Acute Current Visit: Yes (2) Obesity SNOMED Code(s): 676920545, 430264878 Code(s): E66.9 - OBESITY, UNSPECIFIED Status: Acute Current Visit: Yes (3) Acute respiratory failure with hypoxia SNOMED Code(s): 07089783, 397545318 Code(s): J96.01 - ACUTE RESPIRATORY FAILURE WITH HYPOXIA Status: Acute Current Visit: Yes - Problem List Review Problem List Initiated/Reviewed/Updated: Yes - Plan Plan:: Acute respiratory failure with hypoxia due to COVID-19 pneumonia Probable superimposed bacterial pneumonia Continue ceftriaxone and azithromycin Continue Decadron daily Patient is too far out to benefit from remdesivir and I do not think convalescent plasma will be helpful at this point either. Continue respiratory support as needed with oxygen by nasal cannula Daily Covid labs and a.m. procalcitonin Probable sepsis Resolving Continue antibiotics Lactic acidosis Resolved History of asthma Resume home nebs History of PCOS Hold Metformin due to lactic acidosis DVT prophylaxis: Lovenox CODE STATUS: Full code
[2020-03-11] MEDS: Dexamethasone 4 MG/ML SDV IVPUSH SCH (11:57)
[2020-03-11] MEDS: Azithromycin 500 MG in Sodium Chloride 0.9% 250 ML IV SCH (11:58)
[2020-03-11] MEDS: Furosemide 40 MG/4 ML VIAL IVPUSH SCH ×2 (13:39→20:56)
[2020-03-11] MEDS: cefTRIAXone 1 GM in Sodium Chloride 0.9% 50 ML IV SCH (13:39)
[2020-03-11] MEDS: Sodium Chloride 0.9% 10 ML Syringe FLUSH PRN ×2 (20:56→21:05)
[2020-03-11] MEDS: Melatonin 3 MG Tab PO PRN (21:05)
[2020-03-11] MEDS: guaiFENesin/Dextromethorphan 100-10 MG/5 ML Soln 5 ML Cup PO PRN (21:06)
[2020-03-12] MEDS: Ferrous Sulfate 325 MG Tab PO SCH (08:27)
[2020-03-12] MEDS: Enoxaparin 40 MG/0.4 ML Syringe SUBCUT SCH (08:27)
[2020-03-12] MEDS: Furosemide 40 MG/4 ML VIAL IVPUSH SCH ×2 (08:28→22:42)
[2020-03-12 11:52] LABS: ANION GAP 15.7 mEq/L (7-13); CHLORIDE,CL 102 mmol/L (98-107); SODIUM,NA 143 mmol/L (136-145)
--- NOTE | 2020-03-12 12:39 | PCM.PN ---
- General Info Date of Service: 03/12/20 Admission Dx/Problem (Free Text): Admission Diagnosis/Problem Admission Diagnosis/Problem Pneumonia Subjective Update: Patient is a 50-year-old female with a medical history of asthma, PCOS on Metformin who was diagnosed with COVID-19 11 days ago and presents today with complaints of worsening shortness of breath. He was admitted for COVID-[address] showed bilateral pneumonia. Today he is doing okay. She is still requiring high supplemental oxygen. She reports shortness of breath with minimal exertion. Afebrile overnight. No chest pain. No abdominal pain, nausea, vomiting. Labs reviewed Vitals stable Functional Status: Reports: Pain Controlled - Review of Systems General: Reports: No Symptoms HEENT: Reports: No Symptoms Pulmonary: Reports: No Symptoms Cardiovascular: Reports: No Symptoms Gastrointestinal: Reports: No Symptoms Genitourinary: Reports: No Symptoms Musculoskeletal: Reports: No Symptoms Skin: Reports: No Symptoms Neurological: Reports: No Symptoms Psychiatric: Reports: No Symptoms - Patient Data Vitals - Most Recent: Last Vital Signs Temp 97.5 F 03/12/20 08:25 Pulse 72 03/12/20 08:25 Resp 20 03/12/20 08:25 BP 106/60 03/12/20 08:25 Pulse Ox 96 03/12/20 08:25 Weight - Most Recent: 140 lb I&O - Last 24 Hours: Intake & Output 03/11/20 03/12/20 03/12/20 22:59 06:59 14:59 Intake Total 1969 500 Balance 1970 500 Lab Results Last 24 Hours: Laboratory Results - last 24 hr 03/11/20 03/12/20 03/12/20 Range/Units 06:35 10:30 10:30 WBC 12.1 H (5.0-10.0) 10^3/uL RBC 5.19 (4.2-5.4) 10^6/uL Hgb 11.2 L D (12.0-16.0) g/dL Hct 35.1 L (37.0-47.0) % MCV 67.6 L (80-100) fL MCH 21.6 L (27.0-34.0) pg MCHC 31.9 L (33.0-35.0) g/dL Plt Count 319 D (150-450) 10^3/uL PT (9.0-12.0) SEC INR (0.9-1.2) D-Dimer, Quantitative (0-400) ng/mL Sodium 143 (136-145) mmol/L Potassium 3.7 (3.5-5.1) mmol/L Chloride 102 (98-107) mmol/L Carbon Dioxide 29 (21-32) mmol/L Anion Gap 15.7 H (7-13) mEq/L BUN 21 H (7-18) mg/dL Creatinine 0.75 (0.55-1.02) mg/dL Est Cr Clr Drug Dosing 66.21 mL/min Estimated GFR (MDRD) > 60 Glucose 117 H (74-99) mg/dL Calcium 8.5 (8.5-10.1) mg/dL Total Bilirubin 0.3 (0.2-1.0) mg/dL Direct Bilirubin 0.1 (0.0-0.2) mg/dL Indirect Bilirubin 0.2 AST 34 (15-37) U/L ALT 75 H (14-59) U/L Alkaline Phosphatase 89 (46-116) U/L Lactate Dehydrogenase 286 H (81-234) U/L Troponin I < 0.017 (0.000-0.056) ng/mL Total Protein 7.0 (6.4-8.2) g/dL Albumin 3.0 L (3.4-5.0) g/dL Globulin 4.0 Albumin/Globulin Ratio 0.75 Procalcitonin <0.05 (<0.10) ng/mL 03/12/20 Range/Units 10:30 WBC (5.0-10.0) 10^3/uL RBC (4.2-5.4) 10^6/uL Hgb (12.0-16.0) g/dL Hct (37.0-47.0) % MCV (80-100) fL MCH (27.0-34.0) pg MCHC (33.0-35.0) g/dL Plt Count (150-450) 10^3/uL PT 10.3 (9.0-12.0) SEC INR 1.1 (0.9-1.2) D-Dimer, Quantitative 449 H (0-400) ng/mL Sodium (136-145) mmol/L Potassium (3.5-5.1) mmol/L Chloride (98-107) mmol/L Carbon Dioxide (21-32) mmol/L Anion Gap (7-13) mEq/L BUN (7-18) mg/dL Creatinine (0.55-1.02) mg/dL Est Cr Clr Drug Dosing mL/min Estimated GFR (MDRD) Glucose (74-99) mg/dL Calcium (8.5-10.1) mg/dL Total Bilirubin (0.2-1.0) mg/dL Direct Bilirubin (0.0-0.2) mg/dL Indirect Bilirubin AST (15-37) U/L ALT (14-59) U/L Alkaline Phosphatase (46-116) U/L Lactate Dehydrogenase (81-234) U/L Troponin I (0.000-0.056) ng/mL Total Protein (6.4-8.2) g/dL Albumin (3.4-5.0) g/dL Globulin Albumin/Globulin Ratio Procalcitonin (<0.10) ng/mL Vitor Results Last 24 Hours: Microbiology 03/10/20 09:23 Aerobic Blood Culture - Preliminary Blood - Arm, Right NO GROWTH AFTER 2 DAYS Anaerobic Blood Culture - Final 03/10/20 09:20 Aerobic Blood Culture - Preliminary Blood - Arm, Left NO GROWTH AFTER 2 DAYS Anaerobic Blood Culture - Preliminary NO GROWTH AFTER 2 DAYS Med Orders - Current: Current Medications Acetaminophen (Tylenol) 650 mg PO Q4H PRN PRN Reason: Pain (Mild 1-3)/fever Last Admin: 03/11/20 21:06 Dose: 650 mg Documented by: Dexamethasone (Decadron) 6 mg IVPUSH Q24H [facility] Last Admin: 03/11/20 11:57 Dose: 6 mg Documented by: Enoxaparin Sodium (Lovenox) 40 mg SUBCUT DAILY [facility] Last Admin: 03/12/20 08:27 Dose: 40 mg Documented by: Ferrous Sulfate (Ferrous Sulfate) 325 mg PO DAILY [facility] Last Admin: 03/12/20 08:27 Dose: 325 mg Documented by: Furosemide (Lasix) 40 mg IVPUSH BID [facility] Last Admin: 03/12/20 08:28 Dose: 40 mg Documented by: Guaifenesin/Phenylephrine HCl (Robitussin Dm) 10 ml PO Q6H PRN PRN Reason: Cough Last Admin: 03/11/20 21:06 Dose: 10 ml Documented by: Azithromycin 500 mg/ Sodium (Chloride) 250 mls @ 250 mls/hr IV Q24H [facility] Last Admin: 03/11/20 11:58 Dose: 250 mls/hr Documented by: Ceftriaxone Sodium 1 gm/ (Sodium Chloride) 50 mls @ 100 mls/hr IV Q24H [facility] Last Admin: 03/11/20 13:39 Dose: 100 mls/hr Documented by: Melatonin (Melatonin) 6 mg PO BEDTIME PRN PRN Reason: Insomnia Last Admin: 03/11/20 21:05 Dose: 6 mg Documented by: (Budesonide/Formoterol 1 Puff) *Own Med 1 puff INH DAILY [facility] Last Admin: 03/12/20 08:29 Dose: 1 puff Documented by: Ondansetron HCl (Zofran Odt) 4 mg PO Q4H PRN PRN Reason: nausea, able to take PO Ondansetron HCl (Zofran) 4 mg IVPUSH Q4H PRN PRN Reason: Nausea/Vomiting Sodium Chloride (Saline Flush) 10 ml FLUSH ASDIRECTED PRN PRN Reason: Keep Vein Open Last Admin: 03/11/20 21:05 Dose: 10 ml Documented by: Discontinued Medications Ceftriaxone Sodium (Rocephin) Confirm Administered Dose 1 gm .ROUTE .[facility] Stop: 03/10/20 12:40 Last Admin: 03/10/20 12:57 Dose: Not Given Documented by: Sodium Chloride (Normal Saline) 1,000 mls @ 100 mls/hr IV ASDIRECTED [facility] Stop: 03/11/20 12:00 Last Admin: 03/11/20 03:42 Dose: 100 mls/hr Documented by: Sodium Chloride (Normal Saline) 1,000 mls @ 500 mls/hr IV ASDIRECTED [facility] Stop: 03/10/20 14:14 Last Admin: 03/10/20 12:53 Dose: 500 mls/hr Documented by: Metformin HCl (Glucophage) 500 mg PO BIDMEALS [facility] Last Admin: 03/11/20 08:19 Dose: 500 mg Documented by: Non-Formulary Medication (Metformin [Glucophage Xr]) 500 mg PO ACBREAKFAST [facility] Potassium Chloride (Klor-Con 10) 40 meq PO BIDMEALS [facility] Stop: 03/11/20 10:00 Last Admin: 03/11/20 08:19 Dose: 40 meq Documented by: - Exam Quality Assessment: Supplemental Oxygen, DVT Prophylaxis General: Alert, Oriented HEENT: Pupils Equal, Pupils Reactive, EOMI, Mucous Membr. Moist/[place] Neck: Supple Lungs: Clear to Auscultation, Normal Respiratory Effort Cardiovascular: Regular Rate, Regular Rhythm GI/Abdominal Exam: Normal Bowel Sounds, Soft, Non-Tender, No Organomegaly, No Distention, No Abnormal Bruit, No Mass, Pelvis Stable (Female) Exam: Normal External Exam, Normal Speculum Exam, Normal Bimanual Exam Back Exam: Normal Inspection, Full Range of Motion Extremities: Normal Inspection, Normal Range of Motion, Non-Tender, No Pedal Edema, Normal Capillary Refill Skin: Warm, Dry, Intact Wound/Incisions: Healing Well Neurological: No New Focal Deficit Psy/Mental Status: Alert, Normal Affect, Normal Mood Sepsis Event Note - Evaluation Sepsis Screening Result: No Definite Risk - Focused Exam Vital Signs: Vital Signs Temp Pulse Resp BP Pulse Ox 03/12/20 08:25 97.5 F 72 20 106/60 96 - Problem List & Annotations (1) Sepsis due to undetermined organism SNOMED Code(s): 59883178 Code(s): A41.9 - SEPSIS, UNSPECIFIED ORGANISM Status: Acute Current Visit: Yes (2) Obesity SNOMED Code(s): 736913679, 198042266 Code(s): E66.9 - OBESITY, UNSPECIFIED Status: Acute Current Visit: Yes (3) Acute respiratory failure with hypoxia SNOMED Code(s): 22574148, 088041170 Code(s): J96.01 - ACUTE RESPIRATORY FAILURE WITH HYPOXIA Status: Acute Current Visit: Yes - Problem List Review Problem List Initiated/Reviewed/Updated: Yes - My Orders Last 24 Hours: My Active Orders 03/11/20 12:30 Furosemide [Lasix] 40 mg IVPUSH BID 03/12/20 10:30 FERRITIN [CHEM] Routine - Plan Plan:: Acute respiratory failure with hypoxia due to COVID-19 pneumonia Probable superimposed bacterial pneumonia Continue ceftriaxone and azithromycin Continue Decadron daily Patient is too far out to benefit from remdesivir and I do not think convalescent plasma will be helpful at this point either. Continue respiratory support as needed with oxygen by nasal cannula Daily Covid labs and a.m. procalcitonin Probable sepsis Resolving Continue antibiotics Lactic acidosis Resolved History of asthma Resume home nebs History of PCOS Hold Metformin due to lactic acidosis DVT prophylaxis: Lovenox CODE STATUS: Full code
[2020-03-12] MEDS: Azithromycin 500 MG in Sodium Chloride 0.9% 250 ML IV SCH (12:49)
[2020-03-12] MEDS: Dexamethasone 4 MG/ML SDV IVPUSH SCH (12:49)
[2020-03-12] MEDS: cefTRIAXone 1 GM in Sodium Chloride 0.9% 50 ML IV SCH (13:52)
[2020-03-12] MEDS: guaiFENesin/Dextromethorphan 100-10 MG/5 ML Soln 5 ML Cup PO PRN (22:37)
[2020-03-12] MEDS: Melatonin 3 MG Tab PO PRN (22:38)
[2020-03-12] MEDS: Acetaminophen 325 MG Tab PO PRN (22:38)
[2020-03-12] MEDS: Sodium Chloride 0.9% 10 ML Syringe FLUSH PRN (23:02)
[2020-03-13 07:09] LABS: ANION GAP 11.5 mEq/L (7-13); CHLORIDE,CL 104 mmol/L (98-107); SODIUM,NA 141 mmol/L (136-145)
[2020-03-13] MEDS: Furosemide 40 MG/4 ML VIAL IVPUSH SCH ×2 (08:13→13:32)
[2020-03-13] MEDS: Ferrous Sulfate 325 MG Tab PO SCH (08:15)
--- NOTE | 2020-03-13 10:22 | PCM.DCSUM1 ---
Discharge Summary - Hospital Course Free Text/Narrative:: Patient is a 50-year-old female with a medical history of asthma, PCOS on Metformin who was diagnosed with COVID-19 11 days ago and presents today with complaints of worsening shortness of breath. Chest CT showed bilateral pneumonia. She was admitted and started on antibiotics. She did require supplemental oxygen. She was notes given remdesivir and convalescent plasma given the she was diagnosed many days before admission. Overall symptoms improved she however still requires supplemental oxygen. Patient will require 4 L with activity and 2 L at rest. She was safely discharged home on dexamethasone and Levaquin. She will follow-up with PCP. Diagnosis: Stroke: No - Discharge Data Discharge Date: 03/13/20 Discharge Disposition: Home, Self-Care 01 Condition: Good - Referral to Home Health Primary Care Physician: Michael Villela MD - Discharge Diagnosis/Problem(s) (1) Sepsis due to undetermined organism SNOMED Code(s): 47883763 ICD Code: A41.9 - SEPSIS, UNSPECIFIED ORGANISM Status: Acute Current Visit: Yes (2) Obesity SNOMED Code(s): 596558104, 356025813 ICD Code: E66.9 - OBESITY, UNSPECIFIED Status: Acute Current Visit: Yes (3) Acute respiratory failure with hypoxia SNOMED Code(s): 24981712, 216640699 ICD Code: J96.01 - ACUTE RESPIRATORY FAILURE WITH HYPOXIA Status: Acute Current Visit: Yes - Patient Instructions Diet: Diabetic Diet Activity: As Tolerated Driving: May Drive Today Showering/Bathing: May Shower Notify Provider of: Fever, Increased Pain, Swelling and Redness, Nausea and/or Vomiting - Discharge Plan *PRESCRIPTION DRUG MONITORING PROGRAM REVIEWED*: Not Applicable *COPY OF PRESCRIPTION DRUG MONITORING REPORT IN PATIENT NENO: Not Applicable Prescriptions/Med Rec: Aspirin 325 mg PO DAILY #28 tablet dexAMETHasone [Decadron] 6 mg PO DAILY #9 tablet Furosemide [Lasix] 40 mg PO DAILY #14 tab levoFLOXacin [Levaquin] 750 mg PO DAILY #7 tab Dextromethorphan/guaiFENesin [Robitussin DM] 10 ml PO Q6H PRN #5 cup PRN Reason: Cough Home Medications: Home Meds Ibuprofen 400 mg PO Q6HR PRN 03/08/20 [History] metFORMIN [Glucophage XR] 500 mg PO ACBREAKFAST 03/08/20 [History] Budesonide/Formoterol [Symbicort 160-4.5 MCG] 1 puff INH DAILY 03/10/20 [History] Ferrous Sulfate [Iron] 325 mg PO DAILY 03/10/20 [History] dexAMETHasone [Dexamethasone] 6 mg PO DAILY 03/10/20 [History] Aspirin 325 mg PO DAILY #28 tablet 03/13/20 [Rx] Dextromethorphan/guaiFENesin [Robitussin DM] 10 ml PO Q6H PRN #5 cup 03/13/20 [Rx] Furosemide [Lasix] 40 mg PO DAILY #14 tab 03/13/20 [Rx] dexAMETHasone [Decadron] 6 mg PO DAILY #9 tablet 03/13/20 [Rx] levoFLOXacin [Levaquin] 750 mg PO DAILY #7 tab 03/13/20 [Rx] Oxygen Therapy Mode: Nasal Cannula Patient Handouts: Furosemide tablets, COVID-19 Frequently Asked Questions, Acetaminophen; Dextromethorphan; Guaifenesin; Phenylephrine Oral Solution, COVID-19: How to Protect Yourself and Others - CDC, Infection Prevention in the Home, Dexamethasone tablets, Prevent the Spread of COVID-19 if You Are Sick - [facility] Referrals: Michael Villela MD [Primary Care Provider] - - Discharge Summary/Plan Comment DC Time >30 min.: Yes - General Info Date of Service: 03/13/20 Admission Dx/Problem (Free Text: Admission Diagnosis/Problem Admission Diagnosis/Problem Pneumonia due to COVID-19 Functional Status: Reports: Pain Controlled - Review of Systems General: Reports: No Symptoms HEENT: Reports: No Symptoms Pulmonary: Reports: No Symptoms Cardiovascular: Reports: No Symptoms Gastrointestinal: Reports: No Symptoms Genitourinary: Reports: No Symptoms Musculoskeletal: Reports: No Symptoms Skin: Reports: No Symptoms Neurological: Reports: No Symptoms Psychiatric: Reports: No Symptoms - Patient Data Vitals - Most Recent: Last Vital Signs Temp 97.2 F 03/13/20 03:10 Pulse 61 03/13/20 03:10 Resp 20 03/13/20 03:10 BP 109/63 03/13/20 03:10 Pulse Ox 93 L 03/13/20 03:10 Weight - Most Recent: 140 lb I&O - Last 24 hours: Intake & Output 03/12/20 03/13/20 03/13/20 22:59 06:59 14:59 Intake Total 370 200 Output Total 200 Balance 370 0 Lab Results - Last 24 hrs: Laboratory Results - last 24 hr 03/12/20 03/12/20 03/12/20 Range/Units 10:30 10:30 10:30 WBC 12.1 H (5.0-10.0) 10^3/uL RBC 5.19 (4.2-5.4) 10^6/uL Hgb 11.2 L D (12.0-16.0) g/dL Hct 35.1 L (37.0-47.0) % MCV 67.6 L (80-100) fL MCH 21.6 L (27.0-34.0) pg MCHC 31.9 L (33.0-35.0) g/dL Plt Count 319 D (150-450) 10^3/uL PT 10.3 (9.0-12.0) SEC INR 1.1 (0.9-1.2) D-Dimer, Quantitative 449 H (0-400) ng/mL Sodium 143 (136-145) mmol/L Potassium 3.7 (3.5-5.1) mmol/L Chloride 102 (98-107) mmol/L Carbon Dioxide 29 (21-32) mmol/L Anion Gap 15.7 H (7-13) mEq/L BUN 21 H (7-18) mg/dL Creatinine 0.75 (0.55-1.02) mg/dL Est Cr Clr Drug Dosing 66.21 mL/min Estimated GFR (MDRD) > 60 BUN/Creatinine Ratio (No establ ref range) Glucose 117 H (74-99) mg/dL Calcium 8.5 (8.5-10.1) mg/dL Ferritin (8-252) mg/mL Total Bilirubin 0.3 (0.2-1.0) mg/dL Direct Bilirubin 0.1 (0.0-0.2) mg/dL Indirect Bilirubin 0.2 AST 34 (15-37) U/L ALT 75 H (14-59) U/L Alkaline Phosphatase 89 (46-116) U/L Lactate Dehydrogenase 286 H (81-234) U/L Troponin I < 0.017 (0.000-0.056) ng/mL Total Protein 7.0 (6.4-8.2) g/dL Albumin 3.0 L (3.4-5.0) g/dL Globulin 4.0 Albumin/Globulin Ratio 0.75 03/12/20 03/13/20 03/13/20 Range/Units 10:30 06:13 06:13 WBC 8.8 (5.0-10.0) 10^3/uL RBC 5.04 (4.2-5.4) 10^6/uL Hgb 10.8 L (12.0-16.0) g/dL Hct 34.1 L (37.0-47.0) % MCV 67.7 L (80-100) fL MCH 21.4 L (27.0-34.0) pg MCHC 31.7 L (33.0-35.0) g/dL Plt Count 354 (150-450) 10^3/uL PT (9.0-12.0) SEC INR (0.9-1.2) D-Dimer, Quantitative (0-400) ng/mL Sodium (136-145) mmol/L Potassium (3.5-5.1) mmol/L Chloride (98-107) mmol/L Carbon Dioxide (21-32) mmol/L Anion Gap (7-13) mEq/L BUN (7-18) mg/dL Creatinine (0.55-1.02) mg/dL Est Cr Clr Drug Dosing mL/min Estimated GFR (MDRD) BUN/Creatinine Ratio (No establ ref range) Glucose (74-99) mg/dL Calcium (8.5-10.1) mg/dL Ferritin 1466 H 1389 H (8-252) mg/mL Total Bilirubin (0.2-1.0) mg/dL Direct Bilirubin (0.0-0.2) mg/dL Indirect Bilirubin AST (15-37) U/L ALT (14-59) U/L Alkaline Phosphatase (46-116) U/L Lactate Dehydrogenase (81-234) U/L Troponin I (0.000-0.056) ng/mL Total Protein (6.4-8.2) g/dL Albumin (3.4-5.0) g/dL Globulin Albumin/Globulin Ratio 03/13/20 03/13/20 03/13/20 Range/Units 06:13 06:13 06:13 WBC (5.0-10.0) 10^3/uL RBC (4.2-5.4) 10^6/uL Hgb (12.0-16.0) g/dL Hct (37.0-47.0) % MCV (80-100) fL MCH (27.0-34.0) pg MCHC (33.0-35.0) g/dL Plt Count (150-450) 10^3/uL PT 10.0 (9.0-12.0) SEC INR 1.1 (0.9-1.2) D-Dimer, Quantitative 250 (0-400) ng/mL Sodium 141 (136-145) mmol/L Potassium 3.5 (3.5-5.1) mmol/L Chloride 104 (98-107) mmol/L Carbon Dioxide 29 (21-32) mmol/L Anion Gap 11.5 (7-13) mEq/L BUN 23 H (7-18) mg/dL Creatinine 0.68 (0.55-1.02) mg/dL Est Cr Clr Drug Dosing 73.03 mL/min Estimated GFR (MDRD) > 60 BUN/Creatinine Ratio 33.8 (No establ ref range) Glucose 118 H (74-99) mg/dL Calcium 8.5 (8.5-10.1) mg/dL Ferritin (8-252) mg/mL Total Bilirubin 0.3 (0.2-1.0) mg/dL Direct Bilirubin (0.0-0.2) mg/dL Indirect Bilirubin AST 35 (15-37) U/L ALT 94 H (14-59) U/L Alkaline Phosphatase 80 (46-116) U/L Lactate Dehydrogenase 249 H (81-234) U/L Troponin I < 0.017 (0.000-0.056) ng/mL Total Protein 7.2 (6.4-8.2) g/dL Albumin 2.7 L (3.4-5.0) g/dL Globulin 4.5 Albumin/Globulin Ratio 0.60 NADER Results - Last 24 hrs: Microbiology 03/10/20 09:23 Aerobic Blood Culture - Preliminary Blood - Arm, Right NO GROWTH AFTER 3 DAYS Anaerobic Blood Culture - Final 03/10/20 09:20 Aerobic Blood Culture - Preliminary Blood - Arm, Left NO GROWTH AFTER 3 DAYS Anaerobic Blood Culture - Preliminary NO GROWTH AFTER 3 DAYS Med Orders - Current: Current Medications Acetaminophen (Tylenol) 650 mg PO Q4H PRN PRN Reason: Pain (Mild 1-3)/fever Last Admin: 03/12/20 22:38 Dose: 650 mg Documented by: Dexamethasone (Decadron) 6 mg IVPUSH Q24H [facility] Last Admin: 03/12/20 12:49 Dose: 6 mg Documented by: Enoxaparin Sodium (Lovenox) 40 mg SUBCUT DAILY [facility] Last Admin: 03/12/20 08:27 Dose: 40 mg Documented by: Ferrous Sulfate (Ferrous Sulfate) 325 mg PO DAILY [facility] Last Admin: 03/13/20 08:15 Dose: 325 mg Documented by: Furosemide (Lasix) 40 mg IVPUSH BID@0900,1400 [facility] Last Admin: 03/13/20 08:13 Dose: 40 mg Documented by: Guaifenesin/Phenylephrine HCl (Robitussin Dm) 10 ml PO Q6H PRN PRN Reason: Cough Last Admin: 03/12/20 22:37 Dose: 10 ml Documented by: Azithromycin 500 mg/ Sodium (Chloride) 250 mls @ 250 mls/hr IV Q24H [facility] Last Infusion: 03/12/20 13:54 Dose: Infused Documented by: Ceftriaxone Sodium 1 gm/ (Sodium Chloride) 50 mls @ 100 mls/hr IV Q24H [facility] Last Infusion: 03/12/20 14:34 Dose: Infused Documented by: Melatonin (Melatonin) 6 mg PO BEDTIME PRN PRN Reason: Insomnia Last Admin: 03/12/20 22:38 Dose: 6 mg Documented by: (Budesonide/Formoterol 1 Puff) *Own Med 1 puff INH DAILY [facility] Last Admin: 03/13/20 08:18 Dose: 1 puff Documented by: Ondansetron HCl (Zofran Odt) 4 mg PO Q4H PRN PRN Reason: nausea, able to take PO Ondansetron HCl (Zofran) 4 mg IVPUSH Q4H PRN PRN Reason: Nausea/Vomiting Sodium Chloride (Saline Flush) 10 ml FLUSH ASDIRECTED PRN PRN Reason: Keep Vein Open Last Admin: 03/12/20 23:02 Dose: 10 ml Documented by: Discontinued Medications Ceftriaxone Sodium (Rocephin) Confirm Administered Dose 1 gm .ROUTE .[facility] Stop: 03/10/20 12:40 Last Admin: 03/10/20 12:57 Dose: Not Given Documented by: Furosemide (Lasix) 40 mg IVPUSH BID [facility] Last Admin: 03/12/20 22:42 Dose: Not Given Documented by: Sodium Chloride (Normal Saline) 1,000 mls @ 100 mls/hr IV ASDIRECTED [facility] Stop: 03/11/20 12:00 Last Admin: 03/11/20 03:42 Dose: 100 mls/hr Documented by: Sodium Chloride (Normal Saline) 1,000 mls @ 500 mls/hr IV ASDIRECTED [facility] Stop: 03/10/20 14:14 Last Admin: 03/10/20 12:53 Dose: 500 mls/hr Documented by: Metformin HCl (Glucophage) 500 mg PO BIDMEALS [facility] Last Admin: 03/11/20 08:19 Dose: 500 mg Documented by: Non-Formulary Medication (Metformin [Glucophage Xr]) 500 mg PO ACBREAKFAST [facility] Potassium Chloride (Klor-Con 10) 40 meq PO BIDMEALS [facility] Stop: 03/11/20 10:00 Last Admin: 03/11/20 08:19 Dose: 40 meq Documented by: - Exam Quality Assessment: Reports: Supplemental Oxygen General: Reports: Alert, Oriented HEENT: Reports: Pupils Equal, Pupils Reactive, EOMI, Mucous Membr. Moist/Lupus Neck: Reports: Supple Lungs: Reports: Clear to Auscultation, Normal Respiratory Effort Cardiovascular: Reports: Regular Rate, Regular Rhythm GI/Abdominal Exam: Normal Bowel Sounds, Soft, Non-Tender, No Organomegaly, No Distention, No Abnormal Bruit, No Mass, Pelvis Stable (Female) Exam: Normal External Exam, Normal Speculum Exam, Normal Bimanual Exam Rectal (Female) Exam: Normal Exam, Normal Rectal Tone Back Exam: Reports: Normal Inspection, Full Range of Motion Extremities: Normal Inspection, Normal Range of Motion, Non-Tender, No Pedal Edema, Normal Capillary Refill Skin: Reports: Warm, Dry, Intact Wound/Incisions: Reports: Healing Well Neurological: Reports: No New Focal Deficit Psy/Mental Status: Reports: Alert, Normal Affect, Normal Mood
[2020-03-13] MEDS: Enoxaparin 40 MG/0.4 ML Syringe SUBCUT SCH (12:58)
[2020-03-13] MEDS: Dexamethasone 4 MG/ML SDV IVPUSH SCH (12:58)
[2020-03-13] MEDS: cefTRIAXone 1 GM in Sodium Chloride 0.9% 50 ML IV SCH (12:59)
[2020-03-13] MEDS ORDERED: Azithromycin 500 MG in Sodium Chloride 0.9% 250 ML IV SCH (13:00)
== END 2020-03-13 14:15 | disposition home or self-care (01) | DRG 720 ==
LOC: DL.ED 08:22 → UNDOADMOB 10:02 → DL.MS 10:02 → OBSVTOIN 03-12 15:06 → INTOOBSV 03-12 15:06
PROVIDERS: ADMIT Internal Medicine; ATTEND Student in an Organized Health Care Education/Training Program
PROC: 8E0ZXY6 Isolation (ICD-10-PCS; principal; 2020-03-12)
DX: A41.9 Sepsis, unspecified organism (principal); U07.1 COVID-19; J96.01 Acute respiratory failure with hypoxia; J12.89 Other viral pneumonia; E66.9 Obesity, unspecified; J45.909 Unspecified asthma, uncomplicated; H54.7 Unspecified visual loss; E87.2 Acidosis; Z79.84 Long term (current) use of oral hypoglycemic drugs; Z79.82 Long term (current) use of aspirin; Z79.899 Other long term (current) drug therapy; Z88.5 Allergy status to narcotic agent; Z68.26 Body mass index [BMI] 26.0-26.9, adult
CPT/HCPCS: 36415; 71250; 80048; 80053; 80076; 82728; 82962; 83605; 83615; 84145; 84484; 85025; 85027; 85379; 85610; 86140; 87040; 93005; 96365; 96366; 96367; 96372; 96375; 96376; 99284; 99285-25; A9270-GY; G0378; J0456; J0696; J1100; J1650; J1940; J7030; J7050

== ENCOUNTER 2021-01-15 08:53 | Emergency (ER) | payer OTHER, BC ==
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
[2021-01-15 10:01] LABS: AMPHETAMINES,URINE NEGATIVE (NEGATIVE); BARBITURATES,URINE NEGATIVE (NEGATIVE); BENZODIAZEPINE,URINE NEGATIVE (NEGATIVE); MDMA (ECSTASY), URINE NEGATIVE (NEGATIVE); METHADONE,URINE NEGATIVE (NEGATIVE); METHAMPHETAMINES,URINE NEGATIVE (NEGATIVE); OPIATES,URINE NEGATIVE (NEGATIVE); OXYCODONE,URINE NEGATIVE (NEGATIVE); PHENCYCLIDINE,URINE NEGATIVE (NEGATIVE); TCA,URINE NEGATIVE (NEGATIVE)
[2021-01-15 10:15] LABS: ANION GAP 9.9 mEq/L (7-13); CHLORIDE,CL 104 mmol/L (98-107); SODIUM,NA 139 mmol/L (136-145)
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
[2021-01-15] MEDS ORDERED: Acetaminophen/oxyCODONE 325-5 MG Tab PO ONE (11:01)
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
== END 2021-01-15 11:47 | disposition home or self-care (01) ==
LOC: DL.ED 08:53
DX: R07.81 Pleurodynia (principal); M62.838 Other muscle spasm; J45.909 Unspecified asthma, uncomplicated; Z88.5 Allergy status to narcotic agent; V47.5XXA Car driver injured in collision with fixed or stationary object in traffic accident, initial encounter; Y92.481 Parking lot as the place of occurrence of the external cause
CPT/HCPCS: 36415; 70450; 71101; 72125; 72128; 73090; 80053; 80305; 80307; 81001; 81025; 85025; 99284; A9270

== ENCOUNTER 2023-02-09 14:19 | Emergency (ER) | payer BC ==
[2023-02-09] MEDS ORDERED: Albuterol/Ipratropium 3.0-0.5 MG/3 ML Neb Soln NEB ONE ×2 (14:38→16:32)
[2023-02-09] MEDS ORDERED: predniSONE 20 MG Tab PO ONE (14:39)
[2023-02-09 16:11] LABS: CORONAVIRUS COVID-19 NAA NEGATIVE (NEGATIVE); INFLUENZA A NAA NEGATIVE (NEGATIVE); INFLUENZA B NAA NEGATIVE (NEGATIVE); RESPIRATORY SYNCYTIAL VIR NAA NEGATIVE (NEGATIVE)
[2023-02-09] MEDS ORDERED: Amoxicillin 500 MG Cap PO ONE ×2 (17:21→17:39)
[2023-02-09] MEDS ORDERED: guaiFENesin 100 MG/5 ML Soln 5 ML UD Cup PO ONE (17:22)
== END 2023-02-09 17:35 | disposition home or self-care (01) ==
LOC: DL.ED 14:19
DX: J40 Bronchitis, not specified as acute or chronic (principal); Z20.822 Contact with and (suspected) exposure to COVID-19; Z79.84 Long term (current) use of oral hypoglycemic drugs; Z88.8 Allergy status to other drugs, medicaments and biological substances
CPT/HCPCS: 0241U; 71046; 99285; A9270; J7512; J7620-GY